=== PATIENT | male | born 1990 | race Caucasian/White ===

== ENCOUNTER 2016-08-25 10:38 | Emergency (ER) | payer OTHER ==
[2016-08-25] MEDS ORDERED: HYDROmorphone 1 MG/ML Syringe IM ONE (10:53)
--- NOTE | 2016-08-25 11:13 | CR ---
Right hand. Findings: Soft tissue injury distal second digit. A few tiny densities in the soft tissues could ind icate foreign bodies. No definitive distal tuft fracture.
[2016-08-25] MEDS ORDERED: Bupivacaine 0.25% 10 ML SDV INJECT ONE (12:08)
[2016-08-25] MEDS ORDERED: Bacitracin Oint 1 GM U/D Packet TOP ONE (12:09)
[2016-08-25 13:53] VITALS: BP 138/63
--- NOTE | 2016-08-25 14:19 | EDM.PDOC ---
ED HPI GENERAL MEDICAL PROBLEM - General Chief Complaint: Upper Extremity Injury/Pain Stated Complaint: CRUSHED POINTER FINGER (LT HAND) Time Seen by Provider: 08/25/16 10:50 Source of Information: Reports: Patient History Limitations: Reports: No Limitations - History of Present Illness INITIAL COMMENTS - FREE TEXT/NARRATIVE: This young man was working at a [employer] got his right index finger caught in a rock pressure. He jerked the finger back quickly when it happened. This occurred just prior to arrival. Right Hand Pain Score (Numeric/FACES): 10 - Related Data Allergies Allergy/AdvReac Type Severity Reaction Status Date / Time morphine Allergy Cannot Verified 08/25/16 10:43 Remember Home Meds: Home Meds NK [No Known Home Meds] 08/25/16 [History] Past Medical History - Past Health History Medical/Surgical History: Denies Medical/Surgical History Musculoskeletal History: Reports: Fracture - Infectious Disease History Infectious Disease History: Reports: Chicken Pox Social & Family History - Tobacco Use Smoking Status *Q: Heavy Tobacco Smoker Years of Tobacco use: 7 Packs/Tins Daily: 1 - Caffeine Use Caffeine Use: Reports: Coffee, Energy Drinks, Soda - Recreational Drug Use Recreational Drug Use: No Review of Systems - Review of Systems Review Of Systems: ROS reveals no pertinent complaints other than HPI. ED EXAM, GENERAL - Physical Exam Exam: See Below Exam Limited By: No Limitations General Appearance: Alert, WD/WN, Moderate Distress Extremities: Other (There is an apparent crush injury to the right index finger. There is a laceration to the dorsum of the index finger beginning approximately in the mid half of the middle phalanx extending distally and to about the DIP joint and then it veers off in the ulnar direction to the margin of the nail. And this continues to the tip of the finger. The laceration can be opened and it actually shows that the dorsum of the finger forms a flap that goes all the way down to the bone. There is no penetration of the DIP joint. Resolved low bit of grit in the wound. He does have sensation to the tip of the finger he's not able to flex finger due to pain.) Course - Vital Signs Last Recorded V/S: Last Vital Signs Temp 36.6 C 08/25/16 13:52 Pulse 78 08/25/16 13:52 Resp 16 08/25/16 13:52 BP 138/63 07/05/17 13:52 Pulse Ox 99 08/25/16 13:52 - Orders/Labs/Meds Meds: Medications Discontinued Medications Generic Name Dose Route Start Last Admin Trade Name Frieda PRN Reason Stop Dose Admin Bacitracin 2 dose 08/25/16 12:09 08/25/16 12:43 Bacitracin Oint 1 Gm TOP 08/25/16 12:10 2 dose ONETIME ONE Administration Bupivacaine HCl 10 ml 08/25/16 12:08 08/25/16 12:43 Sensorcaine-Mpf 0.25% INJECT 08/25/16 12:09 10 ml ONETIME ONE Administration Hydromorphone HCl 1.5 mg 08/25/16 10:53 08/25/16 10:58 Dilaudid IM 08/25/16 10:54 1.5 mg ONETIME ONE Administration - Radiology Interpretation Free Text/Narrative:: X-ray shows no evidence of fracture or dislocation. There are a couple of pieces of grit as foreign bodies distally. - Re-Assessments/Exams Free Text/Narrative Re-Assessment/Exam: 08/25/16 14:16 The patient received Dilaudid 1.5 mg IM. Procedure: Wound repair. A digital block was done to the right index finger using approximately 8 mL of 0.25% bupivacaine. This gave good local anesthesia. The wound was then placed to soak in a basin with saline and a small amount of Hibiclens. The wound was scrubbed with gauze and irrigated. The patient was then removed and the wound was further irrigated with sterile normal saline and all grit was removed. The wound was then closed with simple interrupted sutures of 5-0 nylon. Care was taken to replace the nail and nailbed properly. I did speak with Dr. Luke Iqbal prior to the repair he agrees with the plan of treatment. A good cosmetic closure was obtained. There was also a small laceration approximately 1 cm to the radial side of the middle phalanx of the finger was closed with 2 sutures of 5-0 nylon after irrigation. They've an aluminum splint was placed fingers were yanira taped and a sterile dressing was applied with bacitracin ointment. 08/25/16 14:20 total length of laceration sutured was 6 cm Departure - Departure Time of Disposition: 14:19 Disposition: Home, Self-Care 01 Condition: Fair Clinical Impression: Crushing injury of right index finger, Laceration of right index finger - Discharge Information Forms: ED Department Discharge Additional Instructions: Take cephalexin 500 mg 4 times daily for 1 week. For pain take Percocet 5/325 one or 2 tablets every 4 hours. #20 tablets dispensed. This medication can cause sedation and impaired driving or operating machinery so use with caution. Leave the dressing on until day after tomorrow. Then remove the dressing washed gently with soap and water. Apply some antibiotic ointment such as bacitracin or triple antibiotic and then cover with a nonadherent dressing such as Telfa and cover with gauze. He will need to see the orthopedic surgeon on Tuesday. He may see Dr. Iqbal here in [place] or another doctor at home. You will not be able to return to work until you are cleared by the orthopedic surgeon. The sutures need to stay in for 10 days.
== END 2016-08-25 14:35 | disposition home or self-care (01) ==
LOC: JP.ED 10:38
DX: S67.190A Crushing injury of right index finger, initial encounter (principal); S61.210A Laceration without foreign body of right index finger without damage to nail, initial encounter; F17.210 Nicotine dependence, cigarettes, uncomplicated; Z88.5 Allergy status to narcotic agent; W23.0XXA Caught, crushed, jammed, or pinched between moving objects, initial encounter; Y99.0 Civilian activity done for income or pay
CPT/HCPCS: 12002; 73130; 96372; 99283; J1170